=== PATIENT | female | born 1980 | race Hispanic/Latino ===

== ENCOUNTER 2019-02-02 15:24 | Emergency (ER) | payer MEDICAID ==
[2019-02-02 15:34] VITALS: BP 138/80
[2019-02-02] MEDS ORDERED: TETANUS,DIPH,PERTUSS(ACELL) VACCINE 0.5 ML SYRINGE IM ONE (15:36)
--- NOTE | 2019-02-02 15:38 | Event Note ---
ED Screening Note Date of service: 02/02/19 Time: 15:37 ED Screening Note: 38 y o f presents wiith stray dog bite to right fore arm This initial assessment/diagnostic orders/clinical plan/treatment(s) is/are subject to change based on patients health status, clinical progression and re-assessment by fellow clinical providers in the ED. Further treatment and workup at subsequent clinical providers discretion. Patient/guardian urged not to elope from the ED as their condition may be serious if not clinically assessed and managed. Initial orders include: xr tet rabies acc eval
--- NOTE | 2019-02-02 16:22 | XRay Report ---
RIGHT FOREARM, 2 VIEWS INDICATION: dog bite/ pain/ fb. COMPARISON: None. IMPRESSION: Soft tissue defect in the distal forearm is noted. No acute osseous injury, joint pathol ogy or radiopaque foreign body is detected. Signer Name: Nathan Pepe Jr, MD Signed: 02/02/2019 4:17 PM Workstation Name: [id number]
[2019-02-02] MEDS ORDERED: RABIES IMMUNE GLOBULIN P/F 300 UNIT/ML INJ 5 ML IM ONE (16:36)
[2019-02-02] MEDS ORDERED: RABIES VACCINE (PCEC)/PF 2.5 UNIT/ML KIT IM ONE (16:36)
[2019-02-02] MEDS ORDERED: HYDROcodone/ACETAMINOPHEN 10-325MG TAB PO ONE (16:50)
--- NOTE | 2019-02-02 16:52 | Emergency Department Report ---
ED Animal Bite HPI - General Chief Complaint: Animal Bite Stated Complaint: DOG BITE/RIGHT ARM Time Seen by Provider: 02/02/19 16:50 Source: patient Mode of arrival: Ambulatory Limitations: No Limitations - History of Present Illness Initial Comments: 38 yo comes to ER with dog bite to r arm. She was walking to the store and a dog came out of [place] and bit her arm. unprovoked. She did not know dog; appeared to be stray. RN asked to call animal control. No other injury Wrapped in [facility] in triage MD Complaint: animal bite -: Sudden Right: Arm Animal: dog Animal Control Notified: Yes Description: unknown animal Mechanism: bite Context: unprovoked Associated Symptoms: none Treatments Prior to Arrival: wound dressing(s) - Related Data Patient Tetanus UTD: No Previous Rx's Medication Instructions Recorded Last Taken Type Amoxicillin [Trimox CAP] 500 mg PO Q8H #30 capsule 02/02/19 Unknown Rx Ibuprofen [Motrin] 800 mg PO Q8HR PRN #30 tablet 02/02/19 Unknown Rx Allergies Allergy/AdvReac Type Severity Reaction Status Date / Time No Known Allergies Allergy Unverified 03/10/13 09:49 ED Review of Systems ROS: Stated complaint: DOG BITE/RIGHT ARM Other details as noted in HPI Comment: All other systems reviewed and negative ED Past Medical Hx - Past Medical History Previous Medical History?: Yes Additional medical history: thyroid. anemia - Surgical History Past Surgical History?: Yes Additional Surgical History: Right arm (cadavear bone.) - Family History Family history: no significant - Social History Smoking Status: Never Smoker Substance Use Type: None - Medications Home Medications: Home Medications Medication Instructions Recorded Confirmed Last Taken Type Amoxicillin [Trimox CAP] 500 mg PO Q8H #30 capsule 02/02/19 Unknown Rx Ibuprofen [Motrin] 800 mg PO Q8HR PRN #30 tablet 02/02/19 Unknown Rx ED Physical Exam - General Limitations: No Limitations General appearance: alert, in no apparent distress - Head Head exam: Present: atraumatic, normocephalic - Eye Eye exam: Present: normal appearance - ENT ENT exam: Present: mucous membranes moist - Neck Neck exam: Present: normal inspection - Respiratory Respiratory exam: Present: normal lung sounds bilaterally. Absent: respiratory distress - Cardiovascular Cardiovascular Exam: Present: regular rate, normal rhythm. Absent: systolic murmur, diastolic murmur, rubs, gallop - GI/Abdominal GI/Abdominal exam: Present: soft, normal bowel sounds - Extremities Exam Extremities exam: Present: normal inspection - Back Exam Back exam: Present: normal inspection - Neurological Exam Neurological exam: Present: alert, oriented X3 - Psychiatric Psychiatric exam: Present: normal affect, normal mood - Skin Skin exam: Present: warm, dry, intact, normal color, other. Absent: rash - Other Other exam information: r arm from elbow to wrist. numerous puncture and scrape wounds from animal bite. neurovasc intact with full rom. bleeding controlled ED Course Vital Signs 02/02/19 15:32 Temperature 98 F Pulse Rate 90 Respiratory 16 Rate Blood Pressure 138/80 O2 Sat by Pulse 99 Oximetry Critical care attestation.: If time is entered above; I have spent that time in minutes in the direct care of this critically ill patient, excluding procedure time. ED Disposition Clinical Impression: Animal bite, Rabies, need for prophylactic vaccination against Disposition: TO HOME OR SELFCARE Is pt being admited?: No Does the pt Need Aspirin: No Condition: Stable Instructions: Rabies Vaccine (Injection), Rabies Immune Globulin (Injection), Animal Bite (ED) Additional Instructions: KEEP WOUND CLEAN AND DRY MED ORDERED TODAY TO PREVENT INFECTION FOLLOW UP WITH [facility] DEPT FOR SECOND RABIES VACCINE INSTRUCTED FOLLOW UP WITH ANIMAL CONTROL NURSE HAS INSTRUCTED YOU KEEP ELEVATED TONIGHT TO DECREASE SWELLING Prescriptions: Ibuprofen [Motrin] 800 mg PO Q8HR PRN #30 tablet PRN Reason: Pain, Moderate (4-6) Amoxicillin [Trimox CAP] 500 mg PO Q8H #30 capsule Referrals: [facility] [Outside] - 3-5 Days BERNADINE SAENZ MD [Staff Physician] - 3-5 Days Time of Disposition: 16:59 ED Medical Decision Making - Radiology Data Radiology results: report reviewed, image reviewed - Medical Decision Making XRAY NOTED ORDERED BY TANNA IN TRIAGE TDAP ANTIBIOTICS MEDICATED FOR PAIN WOUND CARE PROVIDED RABIES SERIES NO 1 OF INJECTIONS GIVEN AROUND WOUNDS OF RIGHT ARM. HOSPITAL OUT OF RABIES VACCINE- PT EDUCATED THAT SHE MUST GO AND GET THIS CHARMAINE- GIVEN LIST OF REFERRALS NEUROVASC INTACT ANIMAL CONTROL TO BE NOTIFIED BY BRENDON DUENAS ARCHER WITH INSTRUCTIONS FOR FOLLOW UP RABIES INJECTIONS, ANTIBIOTICS, WOUND CARE AND PAIN CONTROL. Vital Signs 02/02/19 15:32 Temperature 98 F Pulse Rate 90 Respiratory 16 Rate Blood Pressure 138/80 O2 Sat by Pulse 99 Oximetry charge nurse Cristal aware of the fact that the hosp had no rabies vaccine and that we should follow up with the pt to ensure she gets the injection within 3 days of bite due to high risk bite and mortality associated with rabies. - Differential Diagnosis STRAY DOG BITE
[2019-02-02] MEDS ORDERED: PEN G BENZ/PEN G PROCAINE 1.2 MILLION UNIT/2 ML INJ IM ONE (17:51)
== END 2019-02-02 18:19 | disposition home or self-care (01) ==
LOC: ED 15:24
DX: S41.151A Open bite of right upper arm, initial encounter (principal); W54.0XXA Bitten by dog, initial encounter; D64.9 Anemia, unspecified; Z98.890 Other specified postprocedural states; Z23 Encounter for immunization; Y93.89 Activity, other specified; Y92.89 Other specified places as the place of occurrence of the external cause; Y99.8 Other external cause status
CPT/HCPCS: 73090; 90375; 90471; 90715; 96372; 99283; J0558; 90472; 90675